=== PATIENT | female | born 1975 | race American Indian/Alaskan Native ===

== ENCOUNTER 2017-03-05 14:34 | Observation (INO) | payer MEDICAID ==
[2017-03-05 14:59] VITALS: BMI 32.8
[2017-03-05 15:02] VITALS: O2SAT 100
--- NOTE | 2017-03-05 15:16 | ED PDOC ---
Arrival/HPI - General Chief Complaint: Dizziness/Lightheaded Time Seen by Provider: 03/05/17 15:16 Historian: Patient, Spouse - History of Present Illness Narrative History of Present Illness (Text): 03/05/17 15:16 42 y/o female, pmh including chronic anemia, nkda, c/o dizziness started about 7 hours ago. Pt. stated that she was at work after the breakfast, feeling the entire room is spinning around when suddenly changing the position, admits feeling cold and fatigue frequently for the past 4 weeks, no numbness or tingling, no night sweat, dizziness feels nausea with no numbness or tingling, no other medical or psychological complaints. Pt. admits that she has frequent heavy menstrual period. Past Medical History - Provider Review Nursing Documentation Reviewed: Yes - Psychiatric Hx Substance Use: No - Surgical History Hx Section: Yes Family/Social History - Physician Review Nursing Documentation Reviewed: Yes Family/Social History: Unknown Family HX Smoking Status: Never Smoked Hx Alcohol Use: No Hx Substance Use: No Allergies/Home Meds Allergies/Adverse Reactions: Allergies shellfish derived Allergy (Verified 03/05/17 14:59) ANAPHYLAXIS Home Medications: Home Meds Medication Instructions Recorded Confirmed No Known Home Med 03/05/17 03/05/17 Review of Systems - Review of Systems Constitutional: absent: Fatigue, Fevers Eyes: absent: Vision Changes ENT: absent: Hearing Changes Respiratory: absent: SOB, Cough Cardiovascular: absent: Chest Pain Gastrointestinal: Nausea. absent: Abdominal Pain, Vomiting Musculoskeletal: absent: Arthralgias, Back Pain, Neck Pain, Joint Swelling, Myalgias Neurological: Dizziness. absent: Headache, Focal Weakness, Gait Changes, Speech Changes, Facial Droop, Disequilibrium, Seizure Psychiatric: absent: Anxiety, Depression, Suicidal Ideation Physical Exam Vital Signs Reviewed: Yes Vital Signs Temp Pulse Resp BP Pulse Ox 03/05/17 19:02 65 18 116/58 L 100 03/05/17 17:58 67 18 113/52 L 100 03/05/17 15:58 69 18 115/48 L 100 03/05/17 14:59 98.3 F 73 16 134/82 100 Temperature: Afebrile Blood Pressure: Normal Pulse: Regular Respiratory Rate: Normal Appearance: Positive for: Well-Appearing, Non-Toxic, Comfortable Pain Distress: None Mental Status: Positive for: Alert and Oriented X 3 - Systems Exam Head: Present: Atraumatic, Normocephalic Pupils: Present: PERRL Extroacular Muscles: Present: EOMI Conjunctiva: Present: Normal, Other (no AV knicking, bilateral pupils approx. 5mm with reactive, FREOM without limitation, no obvious papilledema noted. ) Ears: Present: NORMAL TM, Normal Canal. No: Erythema Mouth: Present: Moist Mucous Membranes Neck: Present: Normal Range of Motion, Trachea Midline. No: Meningeal Signs, Lymphadenopathy Respiratory/Chest: Present: Clear to Auscultation, Good Air Exchange. No: Respiratory Distress, Accessory Muscle Use Cardiovascular: Present: Regular Rate and Rhythm, Normal S1, S2. No: Murmurs Abdomen: Present: Normal Bowel Sounds, Other (guaiac negative). No: Tenderness , Distention, Peritoneal Signs Back: Present: Normal Inspection Upper Extremity: Present: Normal Inspection. No: Cyanosis, Edema Lower Extremity: Present: Normal Inspection. No: Edema Neurological: Present: GCS=15, CN II-XII Intact, Speech Normal, Motor Func Grossly Intact, Memory Normal, Other (no drift, normal finger to nose test, normal heel to berger test, +dixhall pike test. ) Skin: Present: Warm, Dry, Normal Color. No: Rashes Psychiatric: Present: Alert, Oriented x 3, Normal Insight, Normal Concentration Medical Decision Making ED Course and Treatment: 03/05/17 15:31 -labs/ua -IVF/meclizine/reglan -orthostatic -observe and reassess 03/05/17 16:37 -Orthostatic within normal limit. -Labs are non-significant except hgb 6.7 which I obtained the consent from the patient to transfuse 2 units of PRBC which should elevated up to hgb 8.7, benadryl 25mg and tylenol 650mg ordered as well. -EKG show SR @ 67 BPM, no ST elevation or depression, no T wave inversion. -Chest x-ray show no active disease -I discussed with the patient about the labs result and she agreed to be admitted. -Pt. will need observation tonight until recheck the hgb level tomorrow. Pt. admits heavy menstrual period. 03/05/17 17:59 -I spoke to the hospitalist Dr. Emily Hardy, discussed about the case/labs/radiology result, she agreed to follow up the care for the patient and continue the care. -I discussed with Dr. Huang as well, he will put in the observation order. - Lab Interpretations Lab Results: 03/05/17 15:50 03/05/17 15:50 Lab Results 03/05/17 17:00: Blood Type Confirm O POSITIVE 03/05/17 15:50: Beta HCG, Quant < 2.39 03/05/17 15:50: Sodium 137, Potassium 3.6, Chloride 107, Carbon Dioxide 24, Anion Gap 10, BUN 9, Creatinine 0.8, Est GFR ( Amer) > 60, Est GFR (Non- Af Amer) > 60, Random Glucose 100, Calcium 8.7, Total Bilirubin 0.3, AST 26, ALT 31, Alkaline Phosphatase 46, Total Protein 7.1, Albumin 4.2, Globulin 2.9, Albumin/Globulin Ratio 1.4 03/05/17 15:50: WBC 4.9, RBC 3.87, Hgb 6.7 L*, Hct 24.4 L, MCV 63.0 L, MCH 17.3 L, MCHC 27.5 L, RDW 18.4 H, Plt Count 180, Gran % 50.6, Lymph % (Auto) 36.8 H, [place] % (Auto) 6.3 H, Eos % (Auto) 6.1 H, Baso % (Auto) 0.2, Gran # 2.47, Lymph # 1.8, [place] # 0.3, Eos # 0.3, Baso # 0.01 03/05/17 15:30: Blood Type O POSITIVE, Antibody Screen Negative, Crossmatch See Detail, BBK History Checked No verified bt I have reviewed the lab results: Yes Interpretation: Abnormal lab values (hgb 6.7) - RAD Interpretation Radiology Orders: 03/05/17 16:15 CHEST PORTABLE [RAD] Stat no active disease Crust Sorter: Radiologist - EKG Interpretation EKG Interpretation (Text): 03/05/17 17:33 SR @ 67 BPM, no ST elevation or depression, no T wave inversion. Interpreted by ED Physician: Yes Type: 12 lead EKG - Medication Orders Current Medication Orders: Discontinued Medications Acetaminophen (Tylenol 325mg Tab) 650 mg PO ONCE STA Stop: 03/05/17 16:36 Last Admin: 03/05/17 17:08 Dose: 650 mg Diphenhydramine HCl (Benadryl) 25 mg PO ONCE ONE Stop: 03/05/17 16:36 Last Admin: 03/05/17 17:08 Dose: 25 mg Sodium Chloride (Sodium Chloride 0.9%) 1,000 mls @ 999 mls/hr IV .Q1H1M STA Stop: 03/05/17 16:27 Last Admin: 03/05/17 15:41 Dose: 999 mls/hr Meclizine HCl (Antivert) 50 mg PO STAT STA Stop: 03/05/17 15:28 Last Admin: 03/05/17 15:41 Dose: 50 mg Metoclopramide HCl (Reglan) 10 mg IVP STAT STA Stop: 03/05/17 15:31 Last Admin: 03/05/17 15:41 Dose: 10 mg - 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 Disposition/Present on Arrival - Present on Arrival Any Indicators Present on Arrival: No History of DVT/PE: No History of Uncontrolled Diabetes: No Urinary Catheter: No History of Decub. Ulcer: No History Surgical Site Infection Following: None - Disposition Have Diagnosis and Disposition been Completed?: Yes Diagnosis: Symptomatic anemia, Dizziness Disposition: HOSPITALIZED Disposition Time: 16:40 Patient Plan: Observation Patient Problems: Current Active Problems Problem Status Onset Symptomatic anemia Acute Dizziness Acute Condition: STABLE
[2017-03-05] MEDS ORDERED: Sodium Chloride 0.9% 1,000 ML IV STA (15:27)
[2017-03-05 16:03] LABS: ADD MANUAL DIFF? NO
[2017-03-05 16:07] LABS: BASO # 0.01 K/mm3 (0.0-2.0); BASO % 0.2 % (0.0-3.0); EOS # 0.3 (0.0-0.7); EOS % 6.1 % (1.5-5.0); GRAN # 2.47 (1.4-6.5); GRAN % 50.6 % (50.0-68.0); HEMATOCRIT 24.4 % (36.0-48.0); LYMPH # 1.8 (1.2-3.4); LYMPH % 36.8 % (22.0-35.0); MEAN CORPUSCULAR HEMOGLOBIN 17.3 pg (25.0-35.0); MEAN CORPUSCULAR HGB CONC 27.5 g/dl (31.0-37.0); MONO # 0.3 (0.1-0.6); MONO % 6.3 % (1.0-6.0); PLATELET COUNT 180 10^3/uL (120.0-450.0); RED CELL DISTRIBUTION WIDTH 18.4 % (11.5-14.5); WHITE BLOOD COUNT 4.9 10^3/ul (4.5-11.0)
[2017-03-05 16:18] LABS: ALB/GLOB RATIO 1.4 (1.1-1.8); ALKALINE PHOSPHATASE 46 U/L (38-133); ALT/SGPT 31 U/L (7-56); AST/SGOT 26 U/L (15-39); BILIRUBIN,TOTAL 0.3 mg/dL (0.2-1.3); BLOOD UREA NITROGEN 9 mg/dL (7-21); CALCIUM 8.7 mg/dL (8.4-10.5); CARBON DIOXIDE 24 mmol/L (21-33); CHLORIDE 107 mmol/L (95-110); GFR AFRICAN-AMERICAN > 60; GLUCOSE,RANDOM 100 mg/dL (70-110); POTASSIUM 3.6 mmol/L (3.6-5.0); SODIUM 137 mmol/L (132-148); TOTAL PROTEIN 7.1 g/dL (5.8-8.3)
--- NOTE | 2017-03-05 18:00 | RAD ---
HISTORY: Medical clearance. Portable study 17:28. COMPARISON: No prior. FINDINGS: LUNGS: No active pulmonary disease. PLEURA: No significant pleural effusion identified, no pneumothorax apparent. CARDIOVASCULAR: Cardiomegaly. No evidence of acute, significant cardiovascular disease. OSSEOUS STRUCTURES: No significant abnormalities. VISUALIZED UPPER ABDOMEN: Normal. OTHER FINDINGS: None. IMPRESSION: No active disease.
[2017-03-05 19:11] LABS: URINE BILIRUBIN NEGATIVE (NEGATIVE); URINE BLOOD NEGATIVE (NEGATIVE); URINE GLUCOSE (UA) NEGATIVE (NEGATIVE); URINE KETONE NEGATIVE (NEGATIVE); URINE LEUKOCYTE ESTERASE TRACE Leu/uL (NEGATIVE); URINE PROTEIN NEGATIVE mg/dL (<30 mg/dL); URINE UROBILINOGEN 0.2 E.U./dL (<1 E.U./dL)
[2017-03-05 19:15] LABS: URINE APPEARANCE SL CLOUDY (CLEAR); URINE COLOR LIGHT YELLOW (YELLOW)
[2017-03-05 19:26] LABS: URINE BACTERIA MANY (NEG); URINE RBC NEGATIVE /hpf (0-2)
[2017-03-05] MEDS ORDERED: cefTRIAXone 1 gm 1 GM/100 ML BAG IVPB STA (20:07)
--- NOTE | 2017-03-05 21:10 | CP.PCM.HP ---
<Emir Portillo - Last Filed: 03/06/17 00:01> History of Present Illness - History of Present Illness History of Present Illness: 42 year old female with no reported past medical history presents to [facility] ED with dizziness. Patient reports her dizziness first started today at 9am when she was at work. She describes her dizziness as if she is losing her balance. Patient's LMP was 2 weeks ago. Patient reports her menstrual periods have always been heavy in bleeding and painful, and they usually last 7 to 8 days. Her last menses was the same. Patient had OBGYN workup done in the past including a normal pap smear in December 2016. In the ED, patient's hemoglobin was found to be 6.7 and two units of PRBC were ordered. Patient's UA was found to have trace LE and positive nitrate, rocephin was given. Patient denies having headache, vision changes, weakness, fever, chills, shortness of breath, chest pain, abdominal pain, pelvic pain, nausea, vomiting, diarrhea, or urinary symptoms. PMD: Dr. Nicole PMHx: none reported PSHx: x2 (1995, 2004), D&C 2013, tubal ligation Allergy: shellfish Social Hx: social alcohol use, denies tobacco, other drug use Family Hx: non contributory Medication: none Present on Admission - Present on Admission Any Indicators Present on Admission: No History of DVT/PE: No History of Uncontrolled Diabetes: No Review of Systems - Constitutional Constitutional: As Per HPI, Other (dizziness). absent: Chills, Fever, Headache - EENT Eyes: As Per HPI. absent: Blurred Vision, Loss of Vision Ears: As Per HPI, Dizziness Nose/Mouth/Throat: As Per HPI. absent: Epistaxis, Nasal Trauma - Cardiovascular Cardiovascular: As Per HPI. absent: Chest Pain, Chest Pain with Activity, Edema - Respiratory Respiratory: As Per HPI. absent: Cough, Dyspnea, Hemoptysis - Gastrointestinal Gastrointestinal: As Per HPI. absent: Abdominal Pain, Dysphagia, Nausea, Vomiting - Genitourinary Genitourinary: As Per HPI. absent: Flank Pain, Pyuria, Urinary Frequency - Reproductive: Female Reproductive:Female: As Per HPI, Heavy Menses - Menstruation Menstruation: As Per HPI, Heavy Menses - Musculoskeletal Musculoskeletal: As Per HPI. absent: Deformity, Muscle Weakness - Integumentary Integumentary: As Per HPI. absent: Photosensitivity, Rash - Neurological Neurological: As Per HPI, Dizziness. absent: Numbness, Headaches, Syncope, Tingling - Psychiatric Psychiatric: As Per HPI. absent: Confusion, Depression - Endocrine Endocrine: As Per HPI - Hematologic/Lymphatic Hematologic: As Per HPI Past Patient History - Past Social History Smoking Status: Never Smoked - PSYCHIATRIC Hx Substance Use: No - SURGICAL HISTORY Hx Section: Yes Meds Allergies/Adverse Reactions: Allergies Allergy/AdvReac Type Severity Reaction Status Date / Time shellfish derived Allergy ANAPHYLAXIS Verified 03/05/17 14:59 Physical Exam - Constitutional Appears: Non-toxic, No Acute Distress - Head Exam Head Exam: ATRAUMATIC, NORMAL INSPECTION, NORMOCEPHALIC - Eye Exam Eye Exam: EOMI, Normal appearance, PERRL - ENT Exam ENT Exam: Mucous Membranes Moist - Neck Exam Neck exam: Positive for: Normal Inspection - Respiratory Exam Respiratory Exam: Clear to Auscultation Bilateral, NORMAL BREATHING PATTERN. absent: Rhonchi, Wheezes, Respiratory Distress - Cardiovascular Exam Cardiovascular Exam: REGULAR RHYTHM, RRR, +S1, +S2 - GI/Abdominal Exam GI & Abdominal Exam: Normal Bowel Sounds, Soft. absent: Rigid, Tenderness - Extremities Exam Extremities exam: Positive for: normal capillary refill, normal inspection, pedal pulses present - Back Exam Back exam: NORMAL INSPECTION. absent: CVA tenderness (L), CVA tenderness (R) - Neurological Exam Neurological exam: Alert, Oriented x3 - Psychiatric Exam Psychiatric exam: Normal Affect, Normal Mood - Skin Skin Exam: Intact, Normal Color, Warm Results - Vital Signs Recent Vital Signs: Last Vital Signs Temp 98.3 F 03/05/17 14:59 Pulse 66 03/05/17 20:18 Resp 18 03/05/17 20:18 BP 121/61 03/05/17 20:18 Pulse Ox 100 03/05/17 20:18 - Labs Result Diagrams: 03/05/17 22:06 03/05/17 15:50 Labs: Laboratory Results - last 24 hr 03/05/17 18:20 Urine Color Light yellow Urine Appearance Sl cloudy Urine pH 6.0 Ur Specific [place] 1.020 Urine Protein Negative Urine Glucose (UA) Negative Urine Ketones Negative Urine Blood Negative Urine Nitrate Positive H Urine Bilirubin Negative Urine Urobilinogen 0.2 Ur Leukocyte Esterase Trace H Urine RBC Negative Urine WBC 1 - 3 Ur Epithelial Cells 3 - 4 Urine Bacteria Many Assessment & Plan - Assessment and Plan (Free Text) Assessment: 42 year old female with no reported past medical history was admitted for anemia secondary to menorrhagia Plan: Anemia secondary to menorrhagia -Hgb 6.7, MVC 63, two units PRBC ordered -Follow up CBC after transfusion -Follow up Iron, TIBC, ferritin, stool occult blood -Follow up sickle cell screen -Orthostatic vital sign -Fall protocol -Continue to monitor -Outpatient OBGYN follow once stabilized UTI -UA trace LE, positive nitrate -No leukocytosis, afebrile -Rocephin was started -Follow up urine culture <Ramona Rolon - Last Filed: 03/06/17 09:06> Results - Vital Signs Recent Vital Signs: Last Vital Signs Temp 98.3 F 03/06/17 07:30 Pulse 63 03/06/17 07:30 Resp 20 03/06/17 07:30 BP 114/69 03/06/17 07:30 Pulse Ox 100 03/06/17 07:30 - Labs Result Diagrams: 03/06/17 07:00 03/05/17 15:50 Labs: Laboratory Results - last 24 hr 03/05/17 03/05/17 03/05/17 18:20 22:06 22:06 WBC 5.2 RBC 3.71 Hgb 6.3 L* Hct 23.4 L MCV 63.1 L MCH 17.0 L MCHC 26.9 L RDW 18.3 H Plt Count 184 Gran % Lymph % (Auto) [place] % (Auto) Eos % (Auto) Baso % (Auto) Gran # Lymph # [place] # Eos # Baso # Iron 10 L TIBC 374 % Saturation 3 L Urine Color Light yellow Urine Appearance Sl cloudy Urine pH 6.0 Ur Specific [place] 1.020 Urine Protein Negative Urine Glucose (UA) Negative Urine Ketones Negative Urine Blood Negative Urine Nitrate Positive H Urine Bilirubin Negative Urine Urobilinogen 0.2 Ur Leukocyte Esterase Trace H Urine RBC Negative Urine WBC 1 - 3 Ur Epithelial Cells 3 - 4 Urine Bacteria Many 03/06/17 07:00 WBC 5.5 RBC 4.39 Hgb 8.6 L Hct 29.7 L MCV 67.7 L MCH 19.6 L MCHC 29.0 L RDW 22.3 H Plt Count 170 Gran % 46.9 L Lymph % (Auto) 38.1 H [place] % (Auto) 7.9 H Eos % (Auto) 6.7 H Baso % (Auto) 0.4 Gran # 2.60 Lymph # 2.1 [place] # 0.4 Eos # 0.4 Baso # 0.02 Iron TIBC % Saturation Urine Color Urine Appearance Urine pH Ur Specific [place] Urine Protein Urine Glucose (UA) Urine Ketones Urine Blood Urine Nitrate Urine Bilirubin Urine Urobilinogen Ur Leukocyte Esterase Urine RBC Urine WBC Ur Epithelial Cells Urine Bacteria Attending/Attestation - Attestation I have personally seen and examined this patient.: Yes I have fully participated in the care of the patient.: Yes I have reviewed all pertinent clinical information: Yes Notes (Text): 03/06/17 09:05 Patient was seen in ER with ophthalmic medical technician. Agree with history, physical ,assessment and plan.
[2017-03-05 22:11] LABS: MEAN CELL VOLUME 63.1 fL (80.0-105.0); MEAN CORPUSCULAR HGB CONC 26.9 g/dl (31.0-37.0); PLATELET COUNT 184 10^3/uL (120.0-450.0); RED CELL DISTRIBUTION WIDTH 18.3 % (11.5-14.5); WHITE BLOOD COUNT 5.2 10^3/ul (4.5-11.0)
[2017-03-05 22:13] LABS: HEMATOCRIT 23.4 % (36.0-48.0)
[2017-03-05 23:21] LABS: IRON 10 ug/dL (45-180)
[2017-03-06 08:22] LABS: ADD MANUAL DIFF? NO
[2017-03-06 08:30] LABS: BASO # 0.02 K/mm3 (0.0-2.0); BASO % 0.4 % (0.0-3.0); EOS # 0.4 (0.0-0.7); EOS % 6.7 % (1.5-5.0); GRAN % 46.9 % (50.0-68.0); HEMATOCRIT 29.7 % (36.0-48.0); LYMPH # 2.1 (1.2-3.4); LYMPH % 38.1 % (22.0-35.0); MEAN CELL VOLUME 67.7 fL (80.0-105.0); MEAN CORPUSCULAR HEMOGLOBIN 19.6 pg (25.0-35.0); MONO # 0.4 (0.1-0.6); MONO % 7.9 % (1.0-6.0); PLATELET COUNT 170 10^3/uL (120.0-450.0); RED CELL DISTRIBUTION WIDTH 22.3 % (11.5-14.5); WHITE BLOOD COUNT 5.5 10^3/ul (4.5-11.0)
[2017-03-06 08:44] VITALS: BP 114/69; PULSE 63; RESP 20; TEMP 98.3
--- NOTE | 2017-03-06 11:28 | CP.PCM.DIS ---
<Anna Hayes - Last Filed: 03/06/17 13:46> Provider - Provider Date of Admission: 03/05/17 18:03 Attending physician: Zoraida Hardy MD Primary care physician: Santosh Nicole MD Time Spent in preparation of Discharge (in minutes): 45 Diagnosis - Discharge Diagnosis (1) Iron deficiency anemia Status: Chronic (2) Menorrhagia Status: Chronic Hospital Course - Lab Results Lab Results: Most Recent Lab Values WBC 5.5 10^3/ul (4.5-11.0) 03/06/17 07:00 RBC 4.39 10^6/uL (3.5-6.1) 03/06/17 07:00 Hgb 8.6 gm/dL (12.0-16.0) L 03/06/17 07:00 Hct 29.7 % (36.0-48.0) L 03/06/17 07:00 MCV 67.7 fL (80.0-105.0) L 03/06/17 07:00 MCH 19.6 pg (25.0-35.0) L 03/06/17 07:00 MCHC 29.0 g/dl (31.0-37.0) L 03/06/17 07:00 RDW 22.3 % (11.5-14.5) H 03/06/17 07:00 Plt Count 170 10^3/uL (120.0-450.0) 03/06/17 07:00 Gran % 46.9 % (50.0-68.0) L 03/06/17 07:00 Lymph % (Auto) 38.1 % (22.0-35.0) H 03/06/17 07:00 [place] % (Auto) 7.9 % (1.0-6.0) H 03/06/17 07:00 Eos % (Auto) 6.7 % (1.5-5.0) H 03/06/17 07:00 Baso % (Auto) 0.4 % (0.0-3.0) 03/06/17 07:00 Gran # 2.60 (1.4-6.5) 03/06/17 07:00 Lymph # 2.1 (1.2-3.4) 03/06/17 07:00 [place] # 0.4 (0.1-0.6) 03/06/17 07:00 Eos # 0.4 (0.0-0.7) 03/06/17 07:00 Baso # 0.02 K/mm3 (0.0-2.0) 03/06/17 07:00 Sodium 137 mmol/L (132-148) 03/05/17 15:50 Potassium 3.6 mmol/L (3.6-5.0) 03/05/17 15:50 Chloride 107 mmol/L (95-110) 03/05/17 15:50 Carbon Dioxide 24 mmol/L (21-33) 03/05/17 15:50 Anion Gap 10 (10-20) 03/05/17 15:50 BUN 9 mg/dL (7-21) 03/05/17 15:50 Creatinine 0.8 mg/dL (0.5-1.4) 03/05/17 15:50 Est GFR ( Amer) > 60 03/05/17 15:50 Est GFR (Non-Af Amer) > 60 03/05/17 15:50 POC Glucose (mg/dL) 121 mg/dL (65-110) H 03/05/17 15:53 Random Glucose 100 mg/dL (70-110) 03/05/17 15:50 Calcium 8.7 mg/dL (8.4-10.5) 03/05/17 15:50 Iron 10 ug/dL (45-180) L 03/05/17 22:06 TIBC 374 ug/dL (265-497) 03/05/17 22:06 % Saturation 3 % (20-55) L 03/05/17 22:06 Total Bilirubin 0.3 mg/dL (0.2-1.3) 03/05/17 15:50 AST 26 U/L (15-39) 03/05/17 15:50 ALT 31 U/L (7-56) 03/05/17 15:50 Alkaline Phosphatase 46 U/L (38-133) 03/05/17 15:50 Total Protein 7.1 g/dL (5.8-8.3) 03/05/17 15:50 Albumin 4.2 g/dL (3.0-4.8) 03/05/17 15:50 Globulin 2.9 gm/dL 03/05/17 15:50 Albumin/Globulin Ratio 1.4 (1.1-1.8) 03/05/17 15:50 Beta HCG, Quant < 2.39 mIU/mL (0-6.15) 03/05/17 15:50 Urine Color Light yellow (YELLOW) 03/05/17 18:20 Urine Appearance Sl cloudy (CLEAR) 03/05/17 18:20 Urine pH 6.0 (4.7-8.0) 03/05/17 18:20 Ur Specific [place] 1.020 (1.005-1.035) 03/05/17 18:20 Urine Protein Negative mg/dL (<30 mg/dL) 03/05/17 18:20 Urine Glucose (UA) Negative mg/dL (NEGATIVE) 03/05/17 18:20 Urine Ketones Negative mg/dL (NEGATIVE) 03/05/17 18:20 Urine Blood Negative (NEGATIVE) 03/05/17 18:20 Urine Nitrate Positive (NEGATIVE) H 03/05/17 18:20 Urine Bilirubin Negative (NEGATIVE) 03/05/17 18:20 Urine Urobilinogen 0.2 E.U./dL (<1 E.U./dL) 03/05/17 18:20 Ur Leukocyte Esterase Trace [place]/uL (NEGATIVE) H 03/05/17 18:20 Urine RBC Negative /hpf (0-2) 03/05/17 18:20 Urine WBC 1 - 3 /hpf (0-6) 03/05/17 18:20 Ur Epithelial Cells 3 - 4 /hpf (0-5) 03/05/17 18:20 Urine Bacteria Many (NEG) 03/05/17 18:20 Blood Type O POSITIVE 03/05/17 15:30 Blood Type Confirm O POSITIVE 03/05/17 17:00 Antibody Screen Negative 03/05/17 15:30 Crossmatch See Detail 03/05/17 15:30 BBK History Checked No verified bt 03/05/17 15:30 - Hospital Course Hospital Course: 42 year old female with past medical history of iron deficiency anemia and menorrhagia was admitted for symptomatic anemia. On admission, Hgb was 6.7, MCV 67.7. Patient received 2 units of PRBC and repeat Hgb was 8.6. Iron studies were also done before transfusions were given and showed low iron levels. Patient also received 1 dose of IV iron infusion. Pelvic Us showed enlarged heterogenous myomatous uterus and simple cyst left adenex. Patient's symptoms improved and she was deemed stable for discharge. Please see MAR for full details. - Date & Time of H&P Date of H&P: 03/06/17 Time of H&P: 11:25 Discharge Exam - Head Exam Head Exam: ATRAUMATIC, NORMAL INSPECTION, NORMOCEPHALIC - Eye Exam Eye Exam: EOMI - ENT Exam ENT Exam: Mucous Membranes Moist - Respiratory Exam Respiratory Exam: Clear to PA & Lateral, NORMAL BREATHING PATTERN. absent: Rales, Rhonchi, Wheezes - Cardiovascular Exam Cardiovascular Exam: REGULAR RHYTHM, +S1, +S2. absent: Diastolic murmur, Gallop , Rubs, Systolic Murmur - GI/Abdominal Exam GI & Abdominal Exam: Normal Bowel Sounds, Soft, Unremarkable. absent: Diminished Bowel Sounds, Distended, Firm, Guarding - Neurological Exam Neurological exam: Alert, Oriented x3 - Psychiatric Exam Psychiatric exam: Normal Affect, Normal Mood - Skin Skin Exam: Dry, Intact, Normal Color, Warm Discharge Plan - Discharge Medications Prescriptions: Docusate Sodium [Colace] 100 mg PO BID PRN #30 capsule PRN Reason: constipation Ferrous Sulfate 325 mg PO BID #60 tablet - Follow Up Plan Condition: STABLE Disposition: HOME/ ROUTINE Instructions: Iron Rich Diet (DC), Iron Deficiency Anemia (DC) Additional Instructions: Patient is to follow up with PMD upon discharge. Patient is to follow up with [facility] [employer] upon discharge in 1 week. Patient is discharged with the following medications: Ferrous sulfate 325 mg po BID #60 tabs, Colace 100 mg po BID prn constipation #30 tabs. Scripts will be sent to [facility]. Patient is given result of US before discharge. Referrals: Santosh Nicole MD [Primary Care Provider] - <Zoraida Hardy - Last Filed: 03/06/17 15:54> Provider - Provider Date of Admission: 03/05/17 18:03 Attending physician: Zoraida Hardy MD Primary care physician: Santosh Nicole MD Hospital Course - Lab Results Lab Results: Most Recent Lab Values WBC 5.5 10^3/ul (4.5-11.0) 03/06/17 07:00 RBC 4.39 10^6/uL (3.5-6.1) 03/06/17 07:00 Hgb 8.6 gm/dL (12.0-16.0) L 03/06/17 07:00 Hct 29.7 % (36.0-48.0) L 03/06/17 07:00 MCV 67.7 fL (80.0-105.0) L 03/06/17 07:00 MCH 19.6 pg (25.0-35.0) L 03/06/17 07:00 MCHC 29.0 g/dl (31.0-37.0) L 03/06/17 07:00 RDW 22.3 % (11.5-14.5) H 03/06/17 07:00 Plt Count 170 10^3/uL (120.0-450.0) 03/06/17 07:00 Gran % 46.9 % (50.0-68.0) L 03/06/17 07:00 Lymph % (Auto) 38.1 % (22.0-35.0) H 03/06/17 07:00 [place] % (Auto) 7.9 % (1.0-6.0) H 03/06/17 07:00 Eos % (Auto) 6.7 % (1.5-5.0) H 03/06/17 07:00 Baso % (Auto) 0.4 % (0.0-3.0) 03/06/17 07:00 Gran # 2.60 (1.4-6.5) 03/06/17 07:00 Lymph # 2.1 (1.2-3.4) 03/06/17 07:00 [place] # 0.4 (0.1-0.6) 03/06/17 07:00 Eos # 0.4 (0.0-0.7) 03/06/17 07:00 Baso # 0.02 K/mm3 (0.0-2.0) 03/06/17 07:00 Sodium 137 mmol/L (132-148) 03/05/17 15:50 Potassium 3.6 mmol/L (3.6-5.0) 03/05/17 15:50 Chloride 107 mmol/L (95-110) 03/05/17 15:50 Carbon Dioxide 24 mmol/L (21-33) 03/05/17 15:50 Anion Gap 10 (10-20) 03/05/17 15:50 BUN 9 mg/dL (7-21) 03/05/17 15:50 Creatinine 0.8 mg/dL (0.5-1.4) 03/05/17 15:50 Est GFR ( Amer) > 60 03/05/17 15:50 Est GFR (Non-Af Amer) > 60 03/05/17 15:50 POC Glucose (mg/dL) 121 mg/dL (65-110) H 03/05/17 15:53 Random Glucose 100 mg/dL (70-110) 03/05/17 15:50 Calcium 8.7 mg/dL (8.4-10.5) 03/05/17 15:50 Iron 10 ug/dL (45-180) L 03/05/17 22:06 TIBC 374 ug/dL (265-497) 03/05/17 22:06 % Saturation 3 % (20-55) L 03/05/17 22:06 Ferritin 4.5 ng/mL 03/05/17 22:06 Total Bilirubin 0.3 mg/dL (0.2-1.3) 03/05/17 15:50 AST 26 U/L (15-39) 03/05/17 15:50 ALT 31 U/L (7-56) 03/05/17 15:50 Alkaline Phosphatase 46 U/L (38-133) 03/05/17 15:50 Total Protein 7.1 g/dL (5.8-8.3) 03/05/17 15:50 Albumin 4.2 g/dL (3.0-4.8) 03/05/17 15:50 Globulin 2.9 gm/dL 03/05/17 15:50 Albumin/Globulin Ratio 1.4 (1.1-1.8) 03/05/17 15:50 Beta HCG, Quant < 2.39 mIU/mL (0-6.15) 03/05/17 15:50 Urine Color Light yellow (YELLOW) 03/05/17 18:20 Urine Appearance Sl cloudy (CLEAR) 03/05/17 18:20 Urine pH 6.0 (4.7-8.0) 03/05/17 18:20 Ur Specific [place] 1.020 (1.005-1.035) 03/05/17 18:20 Urine Protein Negative mg/dL (<30 mg/dL) 03/05/17 18:20 Urine Glucose (UA) Negative mg/dL (NEGATIVE) 03/05/17 18:20 Urine Ketones Negative mg/dL (NEGATIVE) 03/05/17 18:20 Urine Blood Negative (NEGATIVE) 03/05/17 18:20 Urine Nitrate Positive (NEGATIVE) H 03/05/17 18:20 Urine Bilirubin Negative (NEGATIVE) 03/05/17 18:20 Urine Urobilinogen 0.2 E.U./dL (<1 E.U./dL) 03/05/17 18:20 Ur Leukocyte Esterase Trace [place]/uL (NEGATIVE) H 03/05/17 18:20 Urine RBC Negative /hpf (0-2) 03/05/17 18:20 Urine WBC 1 - 3 /hpf (0-6) 03/05/17 18:20 Ur Epithelial Cells 3 - 4 /hpf (0-5) 03/05/17 18:20 Urine Bacteria Many (NEG) 03/05/17 18:20 Blood Type O POSITIVE 03/05/17 15:30 Blood Type Confirm O POSITIVE 03/05/17 17:00 Antibody Screen Negative 03/05/17 15:30 Crossmatch See Detail 03/05/17 15:30 BBK History Checked No verified bt 03/05/17 15:30 Attending/Attestation - Attestation I have personally seen and examined this patient.: Yes I have fully participated in the care of the patient.: Yes I have reviewed all pertinent clinical information, including history, physical exam and plan: Yes Notes (Text): I have seen and examined the patient at bedside. Briefly this is 42 year old female with history of menorrhagia and iron deficiency anemia who got admitted for symptomatic anemia s/p 2 units of prbc transfusion and 1 dose of iv iron. Patient feels well and is eager to go home.Pelvic ultrasound showed heterogenous myomatous uterus. Advised patient to follow up with obgyn. She is able to walk in the hallway without any problem. Upon discharge patient will follow up with Dr Nicole (pmd ) and Dr Lama (obgyn). Iron pills and colace given. Dietary and life style modifications also advised. Dr Zoraida Hardy
--- NOTE | 2017-03-06 13:28 | US ---
HISTORY: Dysfunctional uterine bleeding. LMP 02/15/2017. Regular cycles. COMPARISON: None available. TECHNIQUE: Transabdominal only. Real-time technique with 2D, duplex and color Doppler FINDINGS: UTERUS: Measures 5.9 x 7.2 x 12.0 cm. Mildly enlarged heterogeneous uterus. Multiple (4) uterine fibroids: 1. Exophytic fibroid 2 x 2.8 cm in the body of the uterus on the right. 2. Anterior fibroid 1.4 x 1.6 x 1.5 cm. 3. Exophytic fibroid lower uterine segment to the left of the midline 1.9 x 2.3 x 2 cm. 4. Submucosal fibroid 1 x 1.3 cm posterior to the right of the midline ENDOMETRIUM: Measures 11.6 mm in diameter. No ultrasound findings to suggest gestational sac, fluid, debris, mass or polyp or other pathologic process within the endometrium. CERVIX: No cervical abnormality identified. RIGHT OVARY: Measures 2.6 x 3.9 x 3.9 cm. No solid mass. Normal flow. LEFT OVARY: Measures 2.4 x 4 x 4.7 cm. No solid mass. Normal flow. Simple cyst 1.1 x 1.9 cm FREE FLUID: No significant free fluid noted. OTHER FINDINGS: None. IMPRESSION: 1. Enlarged heterogeneous myomatous uterus. 2. Unremarkable endometrial echo complex. 3. Simple cyst left adnexa.
--- NOTE | 2017-03-06 14:12 | CARD ---
APPROVED REPORT EKG Measurement Heart [id number] <Conclusion> Sinus rhythm with sinus arrhythmia with 1st degree AV block Septal infarct, age undetermined Abnormal ECG
[2017-03-06 16:24] LABS: FOLATE 7.1 ng/mL
== END 2017-03-06 14:20 | disposition home or self-care (01) ==
LOC: ED 14:34 → ERH 18:03 → MERGE 18:03 → ERH 19:56 → 5RNO 20:34
PROVIDERS: ADMIT Hospitalist; ATTEND Hospitalist
DX: D50.9 Iron deficiency anemia, unspecified (principal); N92.0 Excessive and frequent menstruation with regular cycle; D25.9 Leiomyoma of uterus, unspecified; Z91.013 Allergy to seafood; Z87.892 Personal history of anaphylaxis; N39.0 Urinary tract infection, site not specified; K59.00 Constipation, unspecified; B96.20 Unspecified Escherichia coli [E. coli] as the cause of diseases classified elsewhere
CPT/HCPCS: 36415; 36430; 71010; 76856; 80053; 81001; 82607; 82728; 82746; 82948; 83540; 83550; 84702; 85025; 85027; 85660; 86850; 86900; 86920; 87086; 87181; 93005; 96361; 96365; 96367; 96375; 99285; G0378; J0696; J1756; J2765; J7040; P9016

== ENCOUNTER 2017-06-12 10:45 | Emergency (ER) | payer MEDICAID ==
[2017-06-12 10:45] VITALS: BMI 32.8
[2017-06-12 11:13] VITALS: BP 124/85; PULSE 75; TEMP 98.1
[2017-06-12 11:16] VITALS: RESP 18; O2SAT 98
--- NOTE | 2017-06-12 11:19 | ED PDOC ---
Arrival/HPI - General Chief Complaint: Groin Pain Time Seen by Provider: 06/12/17 10:51 Historian: Patient - History of Present Illness Time/Duration: Other (This morning) Symptom Onset: Sudden Symptom Course: Unchanged Severity Level: Mild Associated Symptoms (Text): 06/12/17 11:17 Patient was at work this morning and lifted a heavy box and developed the acute onset of left groin pain. No low back pain. No radiation. No genitourinary symptoms. No nausea vomiting or diarrhea. Past Medical History - Infectious Disease Hx of Infectious Diseases: None - Cardiac Hx Cardiac Disorders: No - Pulmonary Hx Respiratory Disorders: No - Neurological Hx Neurological Disorder: No - HEENT Hx HEENT Disorder: No - Renal Hx Renal Disorder: No - Endocrine/Metabolic Hx Endocrine Disorders: No - Hematological/Oncological Hx Blood Disorders: Yes Hx Anemia: Yes - Integumentary Hx Dermatological Disorder: No - Musculoskeletal/Rheumatological Hx Musculoskeletal Disorders: No Hx Falls: Yes - Gastrointestinal Hx Gastrointestinal Disorders: No - Genitourinary/Gynecological Hx Genitourinary Disorders: No Other/Comment: left fibroid - Psychiatric Hx Psychophysiologic Disorder: No Hx Substance Use: No - Surgical History Hx Section: Yes - Anesthesia Hx Anesthesia: Yes Hx Anesthesia Reactions: No Hx Malignant Hyperthermia: No Family/Social History - Physician Review Nursing Documentation Reviewed: Yes Family/Social History: Unknown Family HX Smoking Status: Never Smoked Hx Alcohol Use: Yes Frequency of alcohol use: Socially Hx Substance Use: No Allergies/Home Meds Allergies/Adverse Reactions: Allergies shellfish derived Allergy (Verified 06/12/17 11:01) ANAPHYLAXIS Review of Systems - Physician Review All systems were reviewed & negative as marked: Yes - Review of Systems Constitutional: Normal Gastrointestinal: Normal Genitourinary Female: Normal Musculoskeletal: absent: Back Pain, Neck Pain Physical Exam Vital Signs Temp Pulse Resp BP Pulse Ox 06/12/17 11:15 75 18 124/85 98 06/12/17 10:55 98.1 F 75 19 124/85 99 Temperature: Afebrile Blood Pressure: Normal Pulse: Regular Respiratory Rate: Normal Appearance: Positive for: Well-Appearing, Non-Toxic, Comfortable, Uncomfortable Pain Distress: Mild Mental Status: Positive for: Alert and Oriented X 3 - Systems Exam Neck: Present: Normal Range of Motion Respiratory/Chest: Present: Clear to Auscultation, Good Air Exchange. No: Respiratory Distress, Accessory Muscle Use Cardiovascular: Present: Regular Rate and Rhythm, Normal S1, S2. No: Murmurs Abdomen: Present: Normal Bowel Sounds. No: Tenderness, Distention, Peritoneal Signs, Rebound, Guarding Back: Present: Normal Inspection. No: CVA Tenderness, Midline Tenderness, Paraspinal Tenderness, Pain with Leg Raise Upper Extremity: Present: Normal Inspection. No: Cyanosis, Edema Lower Extremity: Present: Normal Inspection. No: Edema Neurological: Present: GCS=15, CN II-XII Intact, Speech Normal, Motor Func Grossly Intact Skin: Present: Warm, Dry, Normal Color. No: Rashes Medical Decision Making ED Course and Treatment: 06/12/17 11:39 No imaging is indicated at this time. Discharge home to follow-up with PMD. Follow-up in the ER as needed. Prescription for Naprosyn. - Medication Orders Current Medication Orders: Discontinued Medications Ketorolac Tromethamine (Toradol) 60 mg IM ONCE ONE Stop: 06/12/17 11:17 Last Admin: 06/12/17 11:22 Dose: 60 mg Disposition/Present on Arrival - Present on Arrival Any Indicators Present on Arrival: No History of DVT/PE: No History of Uncontrolled Diabetes: No Urinary Catheter: No History of Decub. Ulcer: No History Surgical Site Infection Following: None - Disposition Have Diagnosis and Disposition been Completed?: Yes Diagnosis: Strain of left inguinal muscle Disposition: HOME/ ROUTINE Disposition Time: 11:39 Patient Plan: Discharge Condition: GOOD Discharge Instructions (ExitCare): Muscle Strain (ED), Groin Strain (ED) Additional Instructions: Rest and ice. Follow-up with PMD. Follow up in ER as needed. Prescriptions: Naproxen [Naprosyn] 500 mg PO BID #14 tab Referrals: Santosh Nicole MD [Primary Care Provider] - Follow up with primary Forms: [employer] ([place]), WORK NOTE
== END 2017-06-12 12:01 | disposition home or self-care (01) ==
LOC: ED 10:45
DX: S39.011A Strain of muscle, fascia and tendon of abdomen, initial encounter (principal); X50.0XXA Overexertion from strenuous movement or load, initial encounter
CPT/HCPCS: 96372; 99283; J1885

== ENCOUNTER 2017-08-12 11:04 | Emergency (ER) | payer MEDICAID ==
[2017-08-12 11:05] VITALS: BMI 32.8
[2017-08-12 11:27] VITALS: RESP 18; TEMP 98.1; O2SAT 98
--- NOTE | 2017-08-12 11:44 | ED PDOC ---
Arrival/HPI <Gómez Saleem - Last Filed: 08/12/17 14:19> <KarenHank - Last Filed: 08/12/17 14:41> - General Chief Complaint: Back Pain Time Seen by Provider: 08/12/17 11:08 - History of Present Illness Narrative History of Present Illness (Text): CC: Lower back pain radiating to right leg x 12hrs This patient is a 42yo F a/ a PMhx of heavy menstrual bleeding changing 12-14 pads per day, soaked with blood, nonstop, who was getting up from the couch today and states that she had a shoot of pain from the low back, lumbar region, to her right leg just above the knee. States she can walk, but it is exquisitely painful and she moves extremely slow. has never had this before. denies fevers/chills, DURON, CP, SOB, abdominal pain, N/V/D, dysuria/freq/urg, or lower extremity swelling. Admits to 10/10 back pain, radiating to right leg above the knee, with intact continence to feces and urine. patient took naproxen before coming to the ER. The patient was not found in the [employer] system for controlled substances. Has no prescriptions out for controlled medicines and has not received any from hospitals. Pmhx: fibroids with mennorhagia, has seen OB who recommended IUD which has not been placed yet; symptomatic anemia Allergies: denied; although shellfish in computer Surgical: Denies FamHx: Remote history of Breast CA in [place] Meds: Denies Social: lives at home, independent in all IADL and ADL, not working currently, denies smoking/etoh/drugs (Gómez Saleem) Past Medical History - Provider Review Nursing Documentation Reviewed: Yes - Travel History Have you recently traveled outside [place] w/in the past 3 mons?: No - Infectious Disease Hx of Infectious Diseases: None - Cardiac Hx Cardiac Disorders: No - Pulmonary Hx Respiratory Disorders: No - Neurological Hx Neurological Disorder: No - HEENT Hx HEENT Disorder: No - Renal Hx Renal Disorder: No - Endocrine/Metabolic Hx Endocrine Disorders: No - Hematological/Oncological Hx Blood Disorders: Yes Hx Anemia: Yes - Integumentary Hx Dermatological Disorder: No - Musculoskeletal/Rheumatological Hx Musculoskeletal Disorders: No - Gastrointestinal Hx Gastrointestinal Disorders: No - Genitourinary/Gynecological Other/Comment: left fibroid - Psychiatric Hx Psychophysiologic Disorder: No Hx Substance Use: No - Surgical History Hx Section: Yes Hx Hysterectomy: Yes - Anesthesia Hx Anesthesia: Yes Hx Anesthesia Reactions: No Hx Malignant Hyperthermia: No <Gómez Saleem - Last Filed: 08/12/17 14:19> Family/Social History - Physician Review Nursing Documentation Reviewed: Yes Family/Social History: No Known Family HX Smoking Status: Never Smoked Hx Alcohol Use: Yes Hx Substance Use: No <SandraNikokarenGómez - Last Filed: 08/12/17 14:19> Allergies/Home Meds <JermainekarenGómez - Last Filed: 08/12/17 14:19> <Hank Jones - Last Filed: 08/12/17 14:41> Allergies/Adverse Reactions: Allergies shellfish derived Allergy (Verified 08/12/17 11:21) ANAPHYLAXIS Review of Systems - Review of Systems Constitutional: Fatigue. absent: Weight Change, Fevers Eyes: absent: Vision Changes ENT: absent: Hearing Changes, Tinnitus Respiratory: absent: SOB, Cough, Sputum Cardiovascular: absent: Chest Pain, Palpitations Gastrointestinal: absent: Abdominal Pain, Stool Changes Genitourinary Female: Vaginal Bleeding (12-15 pads per day continuous ). absent : Dysuria, Frequency, Hematuria Skin: absent: Rash, Pruritis Neurological: absent: Headache, Dizziness Endocrine: absent: Diaphoresis, Polyuria Hemo/Lymphatic: absent: Adenopathy, Easy Bleeding Psychiatric: absent: Anxiety, Depression <JermainekarenGómez cordero - Last Filed: 08/12/17 14:19> Physical Exam Vital Signs Reviewed: Yes Temperature: Afebrile Blood Pressure: Normal Pulse: Regular Respiratory Rate: Normal Appearance: Positive for: Uncomfortable Mental Status: Positive for: Alert and Oriented X 3. No: Confused - Systems Exam Head: Present: Atraumatic, Normocephalic Pupils: Present: PERRL Extroacular Muscles: Present: EOMI (pale conjunctiva ) Mouth: Present: Moist Mucous Membranes Pharnyx: No: ERYTHEMA, EXUDATE Neck: Present: Normal Range of Motion. No: Meningeal Signs Respiratory/Chest: Present: Clear to Auscultation, Good Air Exchange. No: Respiratory Distress, Accessory Muscle Use Cardiovascular: Present: Regular Rate and Rhythm, Normal S1, S2. No: Murmurs Abdomen: Present: Mass/Organomegaly (uterus is palpable up to belly button). No : Tenderness, Distention Upper Extremity: Present: Normal Inspection. No: Cyanosis, Edema Lower Extremity: Present: Normal Inspection, NORMAL PULSES, Normal ROM. No: Edema, CALF TENDERNESS, Cyanosis, Alex's Sign, Tenderness, Swelling, Erythema, Deformity (Patient has positive straight leg test on the right, has intact achilles tendon reflex, decreased patellar reflex, esquiste pain with movement of extremity in the lower back) Neurological: Present: GCS=15, CN II-XII Intact, Speech Normal, Motor Func Grossly Intact, Norm Deep Tendon Reflexes, Memory Normal, Normal 2Pt Descrimination. No: Gait Normal (slow gait ) Skin: Present: Warm Psychiatric: Present: Alert <Gómez Saleem - Last Filed: 08/12/17 14:19> Vital Signs Temp Pulse Resp BP Pulse Ox 08/12/17 13:47 75 18 116/71 98 08/12/17 12:25 79 18 114/75 98 08/12/17 11:26 98.1 F 83 18 112/78 98 08/12/17 11:18 98.1 F 83 18 112/78 100 Medical Decision Making - Lab Interpretations I have reviewed the lab results: Yes <Gómez Saleem - Last Filed: 08/12/17 14:19> <Hank Jones - Last Filed: 08/12/17 14:41> ED Course and Treatment: 08/12/17 11:46 DDx: UTI vs Mennorhagia Vs Lumbar Radiculopathy VSS; patient is visibly uncomfortable in bed and needed to use wheelchair to get to bed; took 10 min to change into gown with nurse No palpable muscle spasm in lower spine palpated that would benefit from trigger injection Tramadol, Baclofen; again patient has no visits for narcotics on record CBC CMP UA CT Lumbar Spine Dispo and Reassess 08/12/17 12:14 Positive nitrates on UA; patient is without symptoms on initial assessment and reassement Patient will wait for urine culture to come back; does not want Abx at this time 08/12/17 12:31 HbG 9.2 which is much improved from prior pending imaging 08/12/17 12:52 Patient is still extremely uncomfortable will give 10 more of baclofen pending imaging results 08/12/17 13:15 Total protein normal, no protein in urine, patient has no B symptoms 08/12/17 13:53 Patient has disc bulg at L4L5 and S1/S2 Will give macrobid BID 100mg 7d even though asymptomatic as per Dr. jones Tylenol recommended for pain Lidoderm patch Tramadol 15 pills Baclofen 15 pills as well will need to f/u with Neurosurgery Mya Pinto The patient is stable for d/c as per Dr. Jones 08/12/17 14:19 (Gómez Saleem) 08/12/17 14:39 Seen and examined with resident. H/H is stable. Back pain is likely musculoskeletal. CT results are noted. Urine is also showing UTI - will d/c on tylenol (will avoid nsaids due to menorrhagia), baclofen, and tramadol, and fu pmd. (Hank Jones) - Lab Interpretations Lab Results: 08/12/17 12:15 08/12/17 12:15 Lab Results 08/12/17 12:15: Sodium 141, Potassium 4.2, Chloride 108 H, Carbon Dioxide 26, Anion Gap 11, BUN 11, Creatinine 0.7, Est GFR ( Amer) > 60, Est GFR (Non- Af Amer) > 60, Random Glucose 104, Calcium 9.3, Total Bilirubin 0.6, AST 24, ALT 31, Alkaline Phosphatase 59, Total Protein 7.3, Albumin 4.3, Globulin 3.0, Albumin/Globulin Ratio 1.4 08/12/17 12:15: WBC 4.7, RBC 4.23, Hgb 9.2 L, Hct 30.7 L, MCV 72.6 L, MCH 21.7 L , MCHC 30.0 L, RDW 15.1 H, Plt Count 217, Gran % 66.3, Lymph % (Auto) 25.3, Rock % (Auto) 6.5 H, Eos % (Auto) 1.7, Baso % (Auto) 0.2, Gran # 3.14, Lymph # 1.2, Rock # 0.3, Eos # 0.1, Baso # 0.01 08/12/17 12:00: Urine Color Yellow, Urine Appearance Clear, Urine pH 6.0, Ur Specific [place] 1.020, Urine Protein Negative, Urine Glucose (UA) Negative, Urine Ketones Negative, Urine Blood Large H, Urine Nitrate Positive H, Urine Bilirubin Negative, Urine Urobilinogen 0.2, Ur Leukocyte Esterase Negative, Urine RBC 20 - 25, Urine WBC 0 - 2, Ur Epithelial Cells 3 - 4, Urine Bacteria Small - RAD Interpretation Radiology Orders: 08/12/17 11:34 LUMBAR SPINE W/O CONTRAST [CT] Stat - Medication Orders Current Medication Orders: Discontinued Medications Baclofen (Lioresal) 10 mg PO ONCE STA Stop: 08/12/17 11:34 Last Admin: 08/12/17 12:16 Dose: 10 mg Baclofen (Lioresal) 10 mg PO ONCE STA Stop: 08/12/17 12:48 Last Admin: 08/12/17 14:25 Dose: 10 mg Lidocaine (Lidoderm) 1 ea TD ONCE STA Stop: 08/12/17 13:59 Last Admin: 08/12/17 14:24 Dose: 1 ea MAR Transdermal Patch Site Document 08/12/17 14:24 MS (Rec: 08/12/17 14:24 MS [id number]) Transdermal Patch Site Transdermal Patch Site Right Lower Back Tramadol HCl (Ultram) 50 mg PO STAT STA Stop: 08/12/17 11:40 Last Admin: 08/12/17 12:01 Dose: 50 mg MAR Pain Assessment Document 08/12/17 12:01 MS (Rec: 08/12/17 12:04 MS [id number]) Pain Reassessment Is this a pain reassessment? No Sleep Is patient sleeping during reassessment? 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 / has examined the patient and agrees with the treatment plan. <Hank Jones - Last Filed: 08/12/17 14:41> Disposition/Present on Arrival - Present on Arrival Any Indicators Present on Arrival: No History of DVT/PE: No History of Uncontrolled Diabetes: No Urinary Catheter: No History of Decub. Ulcer: No History Surgical Site Infection Following: None - Disposition Have Diagnosis and Disposition been Completed?: Yes Disposition Time: 13:55 Patient Plan: Discharge <Gómez Saleem - Last Filed: 08/12/17 14:19> <Hank Jones - Last Filed: 08/12/17 14:41> - Disposition Diagnosis: Radiculopathy Disposition: HOME/ ROUTINE Condition: FAIR Discharge Instructions (ExitCare): Lumbar Radiculopathy (ED) Additional Instructions: Please make sure to follow up with Neurosurgery Please take your medications as prescribed If you begin to become incontinent with urine and feces that is a medical emergency and you should come back for prompt treatment It was a pleasure treating you please feel better Prescriptions: Baclofen [Lioresal] 10 mg PO TID PRN #15 tab PRN Reason: Back pain Lidocaine 5% [Lidoderm] 1 ea TD DAILY PRN #5 patch PRN Reason: Pain, Severe (8-10) Nitrofurantoin Macrocrystals [Macrobid] 100 mg PO BID #14 cap traMADol [Ultram] 50 mg PO Q8H PRN #15 tab PRN Reason: Pain, Severe (8-10) Referrals: Samson Pinto MD [Staff Provider] - Follow up with primary Forms: [employer] ([place]ian), WORK NOTE
[2017-08-12 12:12] LABS: URINE APPEARANCE CLEAR (CLEAR); URINE BILIRUBIN NEGATIVE (NEGATIVE); URINE BLOOD LARGE (NEGATIVE); URINE COLOR YELLOW (YELLOW); URINE GLUCOSE (UA) NEGATIVE (NEGATIVE); URINE KETONE NEGATIVE (NEGATIVE); URINE LEUKOCYTE ESTERASE NEGATIVE Leu/uL (NEGATIVE); URINE PROTEIN NEGATIVE mg/dL (<30 mg/dL); URINE UROBILINOGEN 0.2 E.U./dL (<1 E.U./dL)
[2017-08-12 12:21] LABS: BASO # 0.01 K/mm3 (0.0-2.0); BASO % 0.2 % (0.0-3.0); EOS # 0.1 (0.0-0.7); EOS % 1.7 % (1.5-5.0); GRAN # 3.14 (1.4-6.5); GRAN % 66.3 % (50.0-68.0); HEMATOCRIT 30.7 % (36.0-48.0); LYMPH # 1.2 (1.2-3.4); LYMPH % 25.3 % (22.0-35.0); MEAN CELL VOLUME 72.6 fl (80.0-105.0); MEAN CORPUSCULAR HEMOGLOBIN 21.7 pg (25.0-35.0); MONO # 0.3 (0.1-0.6); MONO % 6.5 % (1.0-6.0); PLATELET COUNT 217 10^3/uL (120.0-450.0); RED CELL DISTRIBUTION WIDTH 15.1 % (11.5-14.5); WHITE BLOOD COUNT 4.7 10^3/ul (4.5-11.0)
[2017-08-12 12:24] LABS: URINE BACTERIA SMALL (NEG); URINE RBC 20 - 25 /hpf (0-2); URINE WBC 0 - 2 /hpf (0-6)
[2017-08-12 12:31] LABS: ALB/GLOB RATIO 1.4 (1.1-1.8); ALKALINE PHOSPHATASE 59 U/L (38-126); ALT/SGPT 31 U/L (7-56); AST/SGOT 24 U/L (14-36); BILIRUBIN,TOTAL 0.6 mg/dL (0.2-1.3); BLOOD UREA NITROGEN 11 mg/dL (7-21); CALCIUM 9.3 mg/dL (8.4-10.5); CARBON DIOXIDE 26 mmol/L (21-33); CHLORIDE 108 mmol/L (98-107); GFR AFRICAN-AMERICAN > 60; GLUCOSE,RANDOM 104 mg/dL (70-110); POTASSIUM 4.2 mmol/L (3.6-5.0); SODIUM 141 mmol/L (132-148); TOTAL PROTEIN 7.3 g/dL (5.8-8.3)
[2017-08-12 13:48] VITALS: BP 116/71; PULSE 75
--- NOTE | 2017-08-12 13:52 | CT ---
PROCEDURE: CT Lumbar Spine without contrast HISTORY: low back pain COMPARISON: None. TECHNIQUE: Axial computed tomography images were obtained of the lumbar spine without the use of intravenous contrast. Coronal and sagittal reformatted images were created and reviewed. Radiation dose: Total exam DLP = 617 mGy-cm. This CT exam was performed using one or more of the following dose reduction techniques: Automated exposure control, adjustment of the mA and/or kV according to patient size, and/or use of iterative reconstruction technique. FINDINGS: VERTEBRAE: Unremarkable. No fracture. Normal alignment. DISCS/SPINAL CANAL/NEURAL FORAMINA: L1-2: Unremarkable. L2-3: Unremarkable. L3-4: Unremarkable. L4-5: There is moderate disc bulging. There is a mild degree of central stenosis L5-S1: Moderate disc bulge. No stenosis PARASPINAL SOFT TISSUES: Unremarkable. OTHER FINDINGS: None. IMPRESSION: Moderate disc bulging at L4-5 and L5-S1.
[2017-08-12] MEDS ORDERED: Lidocaine 5% Patch TD STA (13:58)
== END 2017-08-12 14:26 | disposition home or self-care (01) ==
LOC: ED 11:04
DX: M54.16 Radiculopathy, lumbar region (principal)